=== PATIENT | female | born 1970 | race Native Hawaiian/Other Pacific Islander ===

== ENCOUNTER → 2021-09-05 | Outpatient (CLI) | payer OTHER ==
[2021-09-05 14:54] LABS: African American GFR (CKD) 122.1 (60.0-200.0); Albumin/Globulin Ratio 1.61 (1.60-3.17); Anion Gap 18.3 mmol/L (10.00-18.00); BUN/Creat Ratio 10.76 Ratio (12.00-20.00); Blood Urea Nitrogen 6.8 mg/dL (9.0-27.0); Calcium 9.5 mg/dL (8.7-10.3); Carbon Dioxide 26.7 mmol/L (20.0-27.5); Globulin 3.1 g/dL (1.6-3.3); Non-African American GFR(CKD) 105.3 (60.0-200.0); Potassium 3.1 mmol/L (3.5-5.5); Total Bilirubin 1.9 mg/dL (0.30-1.20); Total Protein 8.1 g/dL (6.2-8.2)
[2021-09-05 15:40] LABS: Basophils # (A) 0.05 X 10*3/uL (0.00-0.10); Basophils % (A) 1.5 %; Eosinophils # (A) 0.06 X 10*3/uL (0.04-0.35); Eosinophils % (A) 1.8 %; HGB 14.3 g/dL (12.0-15.0); Immature Grans, Automated 0 %; Lymphocytes # (A) 0.85 X 10*3/uL (0.90-5.00); Lymphocytes % (A) 25.7 %; MCH 33.1 pg (27.0-32.0); MCV 97.2 fL (80.0-97.0); Mean Platelet Volume 10.6 fL (9.5-12.2); Monocytes # (A) 0.36 X 10*3/uL (0.20-1.00); Monocytes % (A) 10.9 %; NRBC Per 100 WBC 0 /100 WBCS (0.0-0.0); Neutrophils # (A) 1.99 X 10*3/uL (1.80-7.70); Neutrophils % (A) 60.1 %; Platelet Count 82 X 10*3/uL (140-440); RBC 4.32 X 10*6/uL (4.10-5.20); RDW 11.8 % (11.5-14.5); WBC 3.31 X 10*3/uL (4.50-10.00)
[2021-09-05 15:41] LABS: RBC Morphology NORMAL
== END | disposition home or self-care (01) ==
LOC: LABWHC1 08:59
PROVIDERS: ATTEND Internal Medicine Gastroenterology
DX: K70.30 Alcoholic cirrhosis of liver without ascites (principal); K21.9 Gastro-esophageal reflux disease without esophagitis
CPT/HCPCS: 36415; 80053; 82105; 85025

== ENCOUNTER → 2021-09-29 | Outpatient (CLI) | payer OTHER ==
[2021-09-29 18:43] LABS: African American GFR (CKD) 131.7 (60.0-200.0); Albumin 4.2 g/dL (3.8-4.9); Albumin/Globulin Ratio 1.35 (1.60-3.17); Anion Gap 10.8 mmol/L (10.00-18.00); BUN/Creat Ratio 21.8 Ratio (12.00-20.00); Blood Urea Nitrogen 10.9 mg/dL (9.0-27.0); Calcium 9.6 mg/dL (8.7-10.3); Carbon Dioxide 22.2 mmol/L (20.0-27.5); Globulin 3.1 g/dL (1.6-3.3); Non-African American GFR(CKD) 113.6 (60.0-200.0); Potassium 4.3 mmol/L (3.5-5.5); Total Protein 7.3 g/dL (6.2-8.2)
== END | disposition home or self-care (01) ==
LOC: LABWHC1 10:49
PROVIDERS: ATTEND Internal Medicine Gastroenterology
DX: K70.30 Alcoholic cirrhosis of liver without ascites (principal); K21.9 Gastro-esophageal reflux disease without esophagitis
CPT/HCPCS: 36415; 80053

== ENCOUNTER 2022-01-12 12:37 | Inpatient (IN) | payer OTHER ==
[2022-01-12] MEDS ORDERED: SODIUM CHLORIDE 0.9% 1,000 ML IV ONE (12:57)
--- NOTE | 2022-01-12 13:04 | ED ---
Altered Mental Status HPI - General Chief Complaint: Altered Mental Status Stated Complaint: Fever,Vomiting Time Seen by Provider: 01/12/22 12:45 Source: patient Mode of arrival: ambulatory Limitations: altered mental status - History of Present Illness Initial Comments: 51-year-old female with past medical history of alcohol abuse, alcoholic cirrhosis who presents to the emergency department with altered mental status. History is provided by her coworkers. They state that the patient was found in the basement wandering. She is in a regular tire and not scheduled to work today. They found her confused with slurred speech. She is having delusions. States that she called a code walker on a patient however I'm told that this person does not exist. She is convinced that she saw a man and a jumpsuit. Patient reports to me that she is an alcoholic. Last drink was 5 days ago. States that she had a period of sobriety for a long time before this. She follows with a GI doctor out of [facility]. She has had 3 paracenteses, last of which was one year ago. She admits to nausea with vomiting over the past 3 days. No chest pain or shortness of breath. No fevers. Denies any abdominal pain. No peripheral swelling. No head trauma. Does admit to recent forgetfulness. No history of stroke. No history of cancer. No sick contacts. HPI is limited due to patient's altered mental status - Related Data Home Medications Medication Instructions Recorded Confirmed Acamprosate Calcium [Campral] 666 mg PO TID 01/12/22 01/12/22 Albuterol Inhaler [Ventolin Hfa 2 puff INHALATION RT-Q4H PRN 01/12/22 01/12/22 Inhaler] Ascorbic Acid [Vitamin C] 500 mg PO DAILY 01/12/22 01/12/22 Budesonide/Formoterol Fumarate 2 puff INHALATION RT-BID PRN 01/12/22 01/12/22 [Symbicort 160-4.5 Mcg Inhaler] Cyanocobalamin [Vitamin B-12] 500 mcg PO DAILY 01/12/22 01/12/22 Dicyclomine HCl 10 mg PO BID 01/12/22 01/12/22 FLUoxetine HCL [PROzac] 20 mg PO DAILY 01/12/22 01/12/22 Furosemide [Lasix] 20 mg PO DAILY 01/12/22 01/12/22 Lansoprazole [Prevacid 24Hr] 30 mg PO BID 01/12/22 01/12/22 Multivitamins, Thera [Multivitamin 1 tab PO DAILY 01/12/22 01/12/22 (formulary)] Ondansetron Odt [Zofran ODT] 4 mg PO Q8H PRN 01/12/22 01/12/22 Rifaximin [Xifaxan] 550 mg PO BID 01/12/22 01/12/22 Spironolactone [Aldactone] 25 mg PO DAILY 01/12/22 01/12/22 Previous Rx's Medication Instructions Recorded Lactulose [Cephulac] 10 gm PO BID #500 ml 01/14/22 traZODone HCL [Desyrel] 50 mg PO HS PRN #7 tab 01/14/22 Allergies Allergy/AdvReac Type Severity Reaction Status Date / Time carisoprodol [From Soma] Allergy Rash/Hives Verified 01/12/22 16:22 Review of Systems ROS Statement: Those systems with pertinent positive or pertinent negative responses have been documented in the HPI. ROS Other: All systems not noted in ROS Statement are negative. Past Medical History Past Medical History: Asthma, Liver Disease History of Any Multi-Drug Resistant Organisms: Unobtainable Additional Past Surgical History / Comment(s): Multiple paracentesis procedures Past Psychological History: Unable to Obtain Smoking Status: Unknown if ever smoked Past Alcohol Use History: Unable to Obtain Past Drug Use History: Unable to Obtain General Exam Limitations: altered mental status General appearance: alert, in no apparent distress, other (Confused) Head exam: Present: atraumatic, normocephalic, normal inspection Eye exam: Present: scleral icterus ENT exam: Present: normal exam, mucous membranes dry Neck exam: Present: normal inspection Respiratory exam: Present: normal lung sounds bilaterally Cardiovascular Exam: Present: regular rate, normal rhythm, normal heart sounds. Absent: systolic murmur, diastolic murmur, rubs, gallop, clicks GI/Abdominal exam: Present: soft, normal bowel sounds. Absent: distended, tenderness, guarding, rebound, rigid Neurological exam: Present: alert, other (Face is symmetric. Tongue is midline. Speech is slurred) Skin exam: Present: warm, dry, intact, normal color. Absent: rash Course Vital Signs 01/12/22 01/12/22 01/12/22 12:42 15:50 18:05 Temperature 98.3 F Pulse Rate 94 81 85 Respiratory 15 16 16 Rate Blood Pressure 133/83 103/71 104/72 O2 Sat by Pulse 100 99 99 Oximetry - Reevaluation(s) Reevaluation #1: 01/12/22 16:[address] Castro - agreeable to consult on the patient Medical Decision Making - Medical Decision Making Upon arrival patient was placed into room 23. Thorough history and physical exam was performed. IV access is established and laboratory studies are conducted and reviewed. Platelets are 53. INR 1.5. AST and ALTs are markedly elevated. Alcohol is negative. CT of the brain is performed which demonstrates no acute process. Chest x-ray demonstrates no acute cardio primary process. Gallbladder ultrasound demonstrated gallbladder sludge, heterogeneous liver. No gallstones. No pericholecystic fluid. No biliary dilation. Spoke with Dr. Garcia in regards to the patient's symptoms. She is agreeable to consult on the patient. Spoke with Dr. Can who will admit the patient. - Lab Data Result diagrams: 01/13/22 06:48 01/13/22 06:48 Lab Results 01/12/22 01/12/22 01/12/22 Range/Units 12:59 12:59 12:59 WBC 4.9 (3.8-10.6) k/uL RBC 4.04 (3.80-5.40) m/uL Hgb 13.7 (11.4-16.0) gm/dL Hct 39.3 (34.0-46.0) % MCV 97.1 (80.0-100.0) fL MCH 33.8 (25.0-35.0) pg MCHC 34.8 (31.0-37.0) g/dL RDW 12.8 (11.5-15.5) % Plt Count 53 L (150-450) k/uL MPV 11.8 Neutrophils % 62 % Lymphocytes % 21 % Monocytes % 10 % Eosinophils % 3 % Basophils % 0 % Neutrophils # 3.0 (1.3-7.7) k/uL Lymphocytes # 1.0 (1.0-4.8) k/uL Monocytes # 0.5 (0-1.0) k/uL Eosinophils # 0.2 (0-0.7) k/uL Basophils # 0.0 (0-0.2) k/uL Manual Slide Review Performed RBC Morphology Normal PT 15.7 H (9.0-12.0) sec INR 1.5 H (<1.2) APTT 25.8 (22.0-30.0) sec Sodium (137-145) mmol/L Potassium (3.5-5.1) mmol/L Chloride (98-107) mmol/L Carbon Dioxide (22-30) mmol/L Anion Gap mmol/L BUN (7-17) mg/dL Creatinine (0.52-1.04) mg/dL Est GFR (CKD-EPI)AfAm (>60 ml/min/1.73 sqM) Est GFR (CKD-EPI)NonAf (>60 ml/min/1.73 sqM) Glucose (74-99) mg/dL POC Glucose (mg/dL) (70-110) mg/dL POC Glu District Leader ID Calcium (8.4-10.2) mg/dL Total Bilirubin (0.2-1.3) mg/dL Conjugated Bilirubin (0.0-0.3) mg/dL Unconjugated Bilirubin (0.0-1.1) mg/dL Delta Bilirubin (0.0-0.2) mg/dL AST (14-36) U/L ALT (4-34) U/L Alkaline Phosphatase (38-126) U/L Ammonia (<30) umol/L Troponin I (0.000-0.034) ng/mL Total Protein (6.3-8.2) g/dL Albumin (3.5-5.0) g/dL TSH (0.465-4.680) mIU/L Urine Color Yellow Urine Appearance Clear (Clear) Urine pH 6.5 (5.0-8.0) Ur Specific [place] 1.007 (1.001-1.035) Urine Protein Negative (Negative) Urine Glucose (UA) Negative (Negative) Urine Ketones Negative (Negative) Urine Blood Negative (Negative) Urine Nitrite Negative (Negative) Urine Bilirubin Negative (Negative) Urine Urobilinogen <2.0 (<2.0) mg/dL Ur Leukocyte Esterase Negative (Negative) Salicylates mg/dL Urine Opiates Screen Not Detected (NotDetected) Ur Oxycodone Screen Not Detected (NotDetected) Urine Methadone Screen Not Detected (NotDetected) Ur Propoxyphene Screen Not Detected (NotDetected) Acetaminophen ug/mL Ur Barbiturates Screen Not Detected (NotDetected) U Tricyclic Antidepress Not Detected (NotDetected) Ur Phencyclidine Scrn Not Detected (NotDetected) Ur Amphetamines Screen Not Detected (NotDetected) U Methamphetamines Scrn Not Detected (NotDetected) U Benzodiazepines Scrn Not Detected (NotDetected) Urine Cocaine Screen Not Detected (NotDetected) U Marijuana (THC) Screen Detected H (NotDetected) Serum Alcohol mg/dL 01/12/22 01/12/22 01/12/22 Range/Units 12:59 12:59 12:59 WBC (3.8-10.6) k/uL RBC (3.80-5.40) m/uL Hgb (11.4-16.0) gm/dL Hct (34.0-46.0) % MCV (80.0-100.0) fL MCH (25.0-35.0) pg MCHC (31.0-37.0) g/dL RDW (11.5-15.5) % Plt Count (150-450) k/uL MPV Neutrophils % % Lymphocytes % % Monocytes % % Eosinophils % % Basophils % % Neutrophils # (1.3-7.7) k/uL Lymphocytes # (1.0-4.8) k/uL Monocytes # (0-1.0) k/uL Eosinophils # (0-0.7) k/uL Basophils # (0-0.2) k/uL Manual Slide Review RBC Morphology PT (9.0-12.0) sec INR (<1.2) APTT (22.0-30.0) sec Sodium 132 L (137-145) mmol/L Potassium 3.9 (3.5-5.1) mmol/L Chloride 90 L (98-107) mmol/L Carbon Dioxide 28 (22-30) mmol/L Anion Gap 14 mmol/L BUN 27 H (7-17) mg/dL Creatinine 0.63 (0.52-1.04) mg/dL Est GFR (CKD-EPI)AfAm >90 (>60 ml/min/1.73 sqM) Est GFR (CKD-EPI)NonAf >90 (>60 ml/min/1.73 sqM) Glucose 104 H (74-99) mg/dL POC Glucose (mg/dL) (70-110) mg/dL POC Glu District Leader ID Calcium 9.7 (8.4-10.2) mg/dL Total Bilirubin 8.2 H (0.2-1.3) mg/dL Conjugated Bilirubin 3.0 H (0.0-0.3) mg/dL Unconjugated Bilirubin 3.2 H (0.0-1.1) mg/dL Delta Bilirubin 2.0 H (0.0-0.2) mg/dL AST 1240 H (14-36) U/L ALT 446 H (4-34) U/L Alkaline Phosphatase 231 H (38-126) U/L Ammonia 12 (<30) umol/L Troponin I 0.014 (0.000-0.034) ng/mL Total Protein 9.1 H (6.3-8.2) g/dL Albumin 5.3 H (3.5-5.0) g/dL TSH 0.925 (0.465-4.680) mIU/L Urine Color Urine Appearance (Clear) Urine pH (5.0-8.0) Ur Specific [place] (1.001-1.035) Urine Protein (Negative) Urine Glucose (UA) (Negative) Urine Ketones (Negative) Urine Blood (Negative) Urine Nitrite (Negative) Urine Bilirubin (Negative) Urine Urobilinogen (<2.0) mg/dL Ur Leukocyte Esterase (Negative) Salicylates <1.0 mg/dL Urine Opiates Screen (NotDetected) Ur Oxycodone Screen (NotDetected) Urine Methadone Screen (NotDetected) Ur Propoxyphene Screen (NotDetected) Acetaminophen <10.0 ug/mL Ur Barbiturates Screen (NotDetected) U Tricyclic Antidepress (NotDetected) Ur Phencyclidine Scrn (NotDetected) Ur Amphetamines Screen (NotDetected) U Methamphetamines Scrn (NotDetected) U Benzodiazepines Scrn (NotDetected) Urine Cocaine Screen (NotDetected) U Marijuana (THC) Screen (NotDetected) Serum Alcohol <10 mg/dL 01/12/22 Range/Units 15:48 WBC (3.8-10.6) k/uL RBC (3.80-5.40) m/uL Hgb (11.4-16.0) gm/dL Hct (34.0-46.0) % MCV (80.0-100.0) fL MCH (25.0-35.0) pg MCHC (31.0-37.0) g/dL RDW (11.5-15.5) % Plt Count (150-450) k/uL MPV Neutrophils % % Lymphocytes % % Monocytes % % Eosinophils % % Basophils % % Neutrophils # (1.3-7.7) k/uL Lymphocytes # (1.0-4.8) k/uL Monocytes # (0-1.0) k/uL Eosinophils # (0-0.7) k/uL Basophils # (0-0.2) k/uL Manual Slide Review RBC Morphology PT (9.0-12.0) sec INR (<1.2) APTT (22.0-30.0) sec Sodium (137-145) mmol/L Potassium (3.5-5.1) mmol/L Chloride (98-107) mmol/L Carbon Dioxide (22-30) mmol/L Anion Gap mmol/L BUN (7-17) mg/dL Creatinine (0.52-1.04) mg/dL Est GFR (CKD-EPI)AfAm (>60 ml/min/1.73 sqM) Est GFR (CKD-EPI)NonAf (>60 ml/min/1.73 sqM) Glucose (74-99) mg/dL POC Glucose (mg/dL) 90 (70-110) mg/dL POC Glu District Leader ID Primo, Asmara Calcium (8.4-10.2) mg/dL Total Bilirubin (0.2-1.3) mg/dL Conjugated Bilirubin (0.0-0.3) mg/dL Unconjugated Bilirubin (0.0-1.1) mg/dL Delta Bilirubin (0.0-0.2) mg/dL AST (14-36) U/L ALT (4-34) U/L Alkaline Phosphatase (38-126) U/L Ammonia (<30) umol/L Troponin I (0.000-0.034) ng/mL Total Protein (6.3-8.2) g/dL Albumin (3.5-5.0) g/dL TSH (0.465-4.680) mIU/L Urine Color Urine Appearance (Clear) Urine pH (5.0-8.0) Ur Specific [place] (1.001-1.035) Urine Protein (Negative) Urine Glucose (UA) (Negative) Urine Ketones (Negative) Urine Blood (Negative) Urine Nitrite (Negative) Urine Bilirubin (Negative) Urine Urobilinogen (<2.0) mg/dL Ur Leukocyte Esterase (Negative) Salicylates mg/dL Urine Opiates Screen (NotDetected) Ur Oxycodone Screen (NotDetected) Urine Methadone Screen (NotDetected) Ur Propoxyphene Screen (NotDetected) Acetaminophen ug/mL Ur Barbiturates Screen (NotDetected) U Tricyclic Antidepress (NotDetected) Ur Phencyclidine Scrn (NotDetected) Ur Amphetamines Screen (NotDetected) U Methamphetamines Scrn (NotDetected) U Benzodiazepines Scrn (NotDetected) Urine Cocaine Screen (NotDetected) U Marijuana (THC) Screen (NotDetected) Serum Alcohol mg/dL - EKG Data EKG Comments: EKG demonstrates sinus rhythm with a rate of 78. CA interval 159. QRS 95. QTC 447. No acute ST segment elevations or depressions Disposition Clinical Impression: Hepatic encephalopathy, Alcohol abuse, Hepatic cirrhosis Disposition: ADMITTED IP TO THIS [facility] Condition: Poor Is patient prescribed a controlled substance at d/c from ED?: No Time of Disposition: 16:23 Decision to Admit Reason: Admit from EC Decision Date: 01/12/22 Decision Time: 16:23
[2022-01-12 13:15] LABS: Basophils % (A) 0 %; Eosinophils # (A) 0.2 k/uL (0-0.7); Eosinophils % (A) 3 %; HCT 39.3 % (34.0-46.0); HGB 13.7 gm/dL (11.4-16.0); Lymphocytes % (A) 21 %; MCH 33.8 pg (25.0-35.0); MCHC 34.8 g/dL (31.0-37.0); MCV 97.1 fL (80.0-100.0); Mean Platelet Volume 11.8; Monocytes # (A) 0.5 k/uL (0-1.0); Monocytes % (A) 10 %; Neutrophils % (A) 62 %; RBC 4.04 m/uL (3.80-5.40); RDW 12.8 % (11.5-15.5); WBC 4.9 k/uL (3.8-10.6)
[2022-01-12 13:26] LABS: ALT 446 U/L (4-34); Acetaminophen <10.0 ug/mL; African American GFR (CKD) >90 (>60 ml/min/1.73 sqM); Alcohol <10 mg/dL; Anion Gap 14 mmol/L; Bilirubin,Unconjugated 3.2 mg/dL (0.0-1.1); Blood Urea Nitrogen 27 mg/dL (7-17); Calcium 9.7 mg/dL (8.4-10.2); Carbon Dioxide 28 mmol/L (22-30); Chloride 90 mmol/L (98-107); Glucose 104 mg/dL (74-99); Non-African American GFR(CKD) >90 (>60 ml/min/1.73 sqM); Salicylate <1.0 mg/dL; Sodium 132 mmol/L (137-145); Total Bilirubin 8.2 mg/dL (0.2-1.3)
--- NOTE | 2022-01-12 13:38 | CT ---
EXAMINATION TYPE: CT brain wo con CT DLP: 1076.4 mGycm, Automated exposure control for dose reduction was used. DATE OF EXAM: 01/12/2022 1:25 PM COMPARISON: None. CLINICAL INDICATION:Female, 51 years old with history of Altered mental status. TECHNIQUE: Brain: Multiple axial CT images of the brain were obtained without IV contrast. Coronal and sagittal reformats reviewed. FINDINGS: Brain: Extra-axial spaces: No abnormal extra-axial fluid collections. Ventricular system: Within normal limits Cerebral parenchyma: No acute intraparenchymal hemorrhage or mass effect. The benavidez-white junction is well differentiated. Cerebellum: Unremarkable. Mass effect: No evidence of midline shift. Intracranial vasculature: Atherosclerotic calcifications of the intracranial vessels. Soft tissues: Normal. Calvarium/osseous structures: No depressed skull fracture. Paranasal sinuses and mastoid air cells: Clear Visualized orbits: Orbital contents are intact. IMPRESSION: No acute intracranial process.
[2022-01-12 13:42] LABS: Potassium 3.9 mmol/L (3.5-5.1)
[2022-01-12 13:43] LABS: Albumin 5.3 g/dL (3.5-5.0); Total Protein 9.1 g/dL (6.3-8.2)
[2022-01-12 13:44] LABS: AST 1240 U/L (14-36); Alkaline Phosphatase 231 U/L (38-126)
--- NOTE | 2022-01-12 13:45 | XR ---
EXAMINATION TYPE: XR chest 2V DATE OF EXAM: 01/12/2022 1:28 PM COMPARISON: None TECHNIQUE: XR chest 2V Frontal and lateral views of the chest. CLINICAL INDICATION:Female, 51 years old with history of altered mental status; FINDINGS: Lungs/Pleura: There is no evidence of pleural effusion, focal consolidation, or pneumothorax. Pulmonary vascularity: Unremarkable. Heart/mediastinum: Cardiomediastinal silhouette is unremarkable. Musculoskeletal: No acute osseous pathology. IMPRESSION: No acute cardiopulmonary disease/process.
[2022-01-12 13:58] LABS: INR 1.5 (<1.2); Partial Thromboplastin Time 25.8 sec (22.0-30.0); Prothrombin Time 15.7 sec (9.0-12.0)
[2022-01-12 14:16] LABS: Platelet Count 53 k/uL (150-450); RBC Morphology Normal
[2022-01-12 15:03] LABS: Appearance,Urine Clear (Clear); Bilirubin,Urine Negative (Negative); Blood,Urine Negative (Negative); Color,Urine Yellow; Glucose,Urine (UA) Negative (Negative); Ketones,Urine Negative (Negative); Leukocyte Esterase,Urine Negative (Negative); Nitrite,Urine Negative (Negative); PH, Urine 6.5 (5.0-8.0); Protein,Urine Negative (Negative); Specific Gravity,Urine 1.007 (1.001-1.035); Urobilinogen,Urine <2.0 mg/dL (<2.0)
[2022-01-12 15:13] LABS: Amphetamine Screen,Urine Not Detected (NotDetected); Barbiturate Screen,Urine Not Detected (NotDetected); Benzodiazepines Screen,Urine Not Detected (NotDetected); Cocaine Screen,Urine Not Detected (NotDetected); Methadone Screen, Urine Not Detected (NotDetected); Opiate Screen,Urine Not Detected (NotDetected); Oxycodone Screen, Urine Not Detected (NotDetected); Phencyclidine Screen,Urine Not Detected (NotDetected); Tricyclic Antidepressant,Urine Not Detected (NotDetected); Urn Cannabinoid Scrn Detected (NotDetected)
--- NOTE | 2022-01-12 15:26 | US ---
EXAMINATION TYPE: US gallbladder DATE OF EXAM: 01/12/2022 COMPARISON: NONE CLINICAL HISTORY: elevated liver enzymes. Hx cirrhosis. Elevated liver enzymes. TECHNIQUE: Multiple sonographic images of the right upper quadrant are obtained. FINDINGS: EXAM MEASUREMENTS: Liver Length: 17.1 cm Gallbladder Wall: 0.23 cm CBD: 0.57 cm Right Kidney: 12.5 x 5.2 x 4.9 cm NURSE UNIT MANAGER NOTES: Limited due to overlying bowel gas Pancreas: Limited. Liver: Appears very heterogeneous with increased echogenicity and attenuation. Measures upper limits . Gallbladder: Internal echoes/debris seen within the gallbladder: 6.9 x 3.3 x 1.3. Measures upper rizzo its at 9.4 cm in length. Evidence for sonographic Hussein's sign: Patient feels tenderness while scanning over the gallbladd er. CBD: Portions seen appear wnl. Right Kidney: Appears minimally enlarged. No hydronephrosis or masses seen. Limited visibility of low er pole. Visualized portion of pancreas within normal limits. Portions obscured by overlying bowel gas. Visual ized liver heterogeneously hyperechoic. Evaluation for focal masses suboptimal due to the heterogenei ty. No adjacent ascites. Gallbladder shows dependent density could reflect sludge versus artifact. No shadowing mobile gallstones. No pericholecystic fluid or abnormal gallbladder wall thickening. No bi liary dilatation. No right-sided hydronephrosis. IMPRESSION: Heterogeneous hyperechoic appearance of liver consistent with diffuse fatty infiltration and/or underlying hepatocellular disease.
[2022-01-12 15:51] LABS: Glucose,Whole Blood 90 mg/dL (70-110)
[2022-01-12] MEDS ORDERED: NALOXONE 0.4 MG/ML 1 ML VIAL IV PRN (16:20)
[2022-01-12] MEDS ORDERED: ACETAMINOPHEN TAB 325 MG TAB PO PRN (16:20)
[2022-01-12] MEDS: SODIUM CHLORIDE 0.9% 1,000 ML IV SCH (17:07)
[2022-01-12] MEDS ORDERED: ONDANSETRON ODT 4 MG TAB PO PRN (17:19)
[2022-01-12] MEDS ORDERED: SYMBICORT 160-4.5 MCG INHALER INHALATION PRN (17:19)
--- NOTE | 2022-01-12 17:21 | P.HPIM ---
History of Present Illness H&P Date: 01/12/22 Chief Complaint: Episodes of confusion, altered mental status 51-year-old woman with medical history of alcohol use disorder, alcoholic cirrhosis, depression, asthma presented for evaluation of altered mental status. According to the patient, she has been having issues with confusion over the last several days to the point where family has started to notice that she's bee n having delusions and hallucinations. Yesterday for example she was having hallucinations that someone broke into her house and was planning to robber, and felt terrified from this. This morning, she presented to work but was not scheduled, and was found by her colleagues who noted that she was quite confused. 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 As a consequence, patient was brought to the emergency room for further evaluation. She denies fevers, but reports chills. She reports nausea without vomiting. She denies chest pain, palpitations, syncope, presyncope, cough, dyspnea. She reports abdominal pain, intermittent constipation, denies diarrhea. She denies dysuria, dyschezia, hematochezia, melena. She denies numbness/weakness of extremities. In the emergency room, patient was afebrile, 133/83, heart rate 94, 100% on room air. CBC shows low platelets of 53, otherwise unremarkable. Chemistry show low sodium at 132, low chloride at 90, BUN of 27, otherwise unremarkable. LFTs show total bilirubin of 8.2, conjugate bilirubin of 3.0, unconjugated bilirubin of 3.2, delta bilirubin of 2.0, AST of 1240, ALT of 446, alkaline phosphatase of 231, total protein of 9.1, albumin 5.3. TSH was 0.925. Ammonia was 12. Initial troponins 0.014. Coags show an elevated PT of 15.7, elevated INR 1.5. UA is unremarkable. Urine tox screen is only positive for marijuana. Alcohol level was less than 10, Tylenol level was less than 10, salicylate level was less than 1. Brain CT was negative for acute intracranial process. Chest x-ray was negative for acute cardiopulmonary disease or process. Gallbladder ultrasound demonstrated heterogenous hyperechoic appearance of the liver consistent with hepatocellular disease, no evidence of cholecystitis. All Systems reviewed and pertinent positives and negatives noted in HPI, all other symptoms are negative Gen: in no apparent distress, resting comfortably in bed Eyes: PERRL, no scleral injection or icterus HENT: normocephalic, atraumatic, good hearing acuity, moist mucous membranes Neck: no tracheal deviation, full range of motion Resp: good air exchange, breathing comfortably with no accessory muscle use, no tactile fremitus CVS: good distal perfusion x 4, no pitting edema GI: soft, ND, no hepatosplenomegaly, tenderness to palpation diffusely, but worse in the right upper quadrant, spider angiomata present : no suprapubic tenderness, no CVAT, fenton catheter not present MSK: no clubbing, no cyanosis, no noted contractures of extremities Skin: no noted rashes, petechiae; temperature of skin is appropriate Neuro: moving all extremities without signs of weakness, CN II-XII intact Psych: cooperative, euthymic mood, insight and judgment intact Labs and imaging reviewed as above Assessment/plan: Altered mental status Hepatocellular liver failure -Admit to inpatient, telemetry -GI consult -IV fluids -Hold off on antibiotics for now -Lactulose -Resume patient's rifaximin Alcohol use disorder Asthma Depression -Home medications reviewed and reconciled Patient is full code DVT prophylaxis with heparin 3 times a day Past Medical History Past Medical History: Asthma, Liver Disease History of Any Multi-Drug Resistant Organisms: Unobtainable Additional Past Surgical History / Comment(s): Multiple paracentesis procedures Past Psychological History: Unable to Obtain Smoking Status: Unknown if ever smoked Past Alcohol Use History: Unable to Obtain Past Drug Use History: Unable to Obtain Medications and Allergies Home Medications Medication Instructions Recorded Confirmed Type Acamprosate Calcium [Campral] 666 mg PO TID 01/12/22 01/12/22 History Albuterol Inhaler [Ventolin Hfa 2 puff INHALATION RT-Q4H PRN 01/12/22 01/12/22 History Inhaler] Ascorbic Acid [Vitamin C] 500 mg PO DAILY 01/12/22 01/12/22 History Budesonide/Formoterol Fumarate 2 puff INHALATION RT-BID PRN 01/12/22 01/12/22 History [Symbicort 160-4.5 Mcg Inhaler] Cyanocobalamin [Vitamin B-12] 500 mcg PO DAILY 01/12/22 01/12/22 History Dicyclomine HCl 10 mg PO BID 01/12/22 01/12/22 History FLUoxetine HCL [PROzac] 20 mg PO DAILY 01/12/22 01/12/22 History Furosemide [Lasix] 20 mg PO DAILY 01/12/22 01/12/22 History Lansoprazole [Prevacid 24Hr] 30 mg PO BID 01/12/22 01/12/22 History Multivitamins, Thera [Multivitamin 1 tab PO DAILY 01/12/22 01/12/22 History (formulary)] Ondansetron Odt [Zofran Odt] 4 mg PO Q8H PRN 01/12/22 01/12/22 History Rifaximin [Xifaxan] 550 mg PO BID 01/12/22 01/12/22 History Spironolactone [Aldactone] 25 mg PO DAILY 01/12/22 01/12/22 History Allergies Allergy/AdvReac Type Severity Reaction Status Date / Time carisoprodol [From Soma] Allergy Rash/Hives Verified 01/12/22 16:22 Physical Exam Osteopathic Statement: *. No significant issues noted on an osteopathic structural exam other than those noted in the History and Physical/Consult. Vitals: Vital Signs Temp Pulse Resp BP Pulse Ox 01/12/22 15:50 81 16 103/71 99 01/12/22 12:42 98.3 F 94 15 133/83 100 Intake and Output 01/12/22 01/12/22 01/12/22 06:59 14:59 22:59 Other: Weight 57.153 kg Results CBC & Chem 7: 01/12/22 12:59 01/12/22 12:59 Labs: Abnormal Lab Results - Last 24 Hours (Table) 01/12/22 01/12/22 01/12/22 Range/Units 12:59 12:59 12:59 Plt Count 53 L (150-450) k/uL PT 15.7 H (9.0-12.0) sec INR 1.5 H (<1.2) Sodium (137-145) mmol/L Chloride (98-107) mmol/L BUN (7-17) mg/dL Glucose (74-99) mg/dL Total Bilirubin (0.2-1.3) mg/dL Conjugated Bilirubin (0.0-0.3) mg/dL Unconjugated Bilirubin (0.0-1.1) mg/dL Delta Bilirubin (0.0-0.2) mg/dL AST (14-36) U/L ALT (4-34) U/L Alkaline Phosphatase (38-126) U/L Total Protein (6.3-8.2) g/dL Albumin (3.5-5.0) g/dL U Marijuana (THC) Screen Detected H (NotDetected) 01/12/22 Range/Units 12:59 Plt Count (150-450) k/uL PT (9.0-12.0) sec INR (<1.2) Sodium 132 L (137-145) mmol/L Chloride 90 L (98-107) mmol/L BUN 27 H (7-17) mg/dL Glucose 104 H (74-99) mg/dL Total Bilirubin 8.2 H (0.2-1.3) mg/dL Conjugated Bilirubin 3.0 H (0.0-0.3) mg/dL Unconjugated Bilirubin 3.2 H (0.0-1.1) mg/dL Delta Bilirubin 2.0 H (0.0-0.2) mg/dL AST 1240 H (14-36) U/L ALT 446 H (4-34) U/L Alkaline Phosphatase 231 H (38-126) U/L Total Protein 9.1 H (6.3-8.2) g/dL Albumin 5.3 H (3.5-5.0) g/dL U Marijuana (THC) Screen (NotDetected)
[2022-01-12] MEDS: PANTOPRAZOLE 40 MG TABLET PO SCH (18:04)
[2022-01-12] MEDS: DICYCLOMINE 10 MG CAP PO SCH (21:40)
[2022-01-12] MEDS: LACTULOSE 20 GM/30 ML CUP PO SCH (21:40)
[2022-01-12] MEDS: RIFAXIMIN 550 MG TABLET PO SCH (21:41)
[2022-01-12] MEDS: ACAMPROSATE CALCIUM 333 MG TABLET.DR PO SCH (21:41)
[2022-01-13] MEDS: HEPARIN SODIUM,PORCINE/PF 5,000 UNIT/0.5 ML SYRINGE SQ SCH ×3 (00:15→18:31)
[2022-01-13] MEDS: SODIUM CHLORIDE 0.9% 1,000 ML IV SCH ×2 (06:10→18:42)
[2022-01-13] MEDS: PANTOPRAZOLE 40 MG TABLET PO SCH ×2 (06:31→18:31)
[2022-01-13 07:57] LABS: Basophils % (A) 1 %; Eosinophils # (A) 0.2 k/uL (0-0.7); Eosinophils % (A) 5 %; HCT 41.7 % (34.0-46.0); HGB 13.9 gm/dL (11.4-16.0); Lymphocytes % (A) 29 %; MCHC 33.4 g/dL (31.0-37.0); MCV 101.7 fL (80.0-100.0); Macrocytosis Slight; Mean Platelet Volume 10.3; Monocytes # (A) 0.4 k/uL (0-1.0); Monocytes % (A) 11 %; Neutrophils # (A) 1.9 k/uL (1.3-7.7); Neutrophils % (A) 52 %; RDW 12.7 % (11.5-15.5); WBC 3.6 k/uL (3.8-10.6)
[2022-01-13 08:02] LABS: INR 1.4 (<1.2); Prothrombin Time 14.5 sec (9.0-12.0)
[2022-01-13 08:06] LABS: ALT 377 U/L (4-34); African American GFR (CKD) >90 (>60 ml/min/1.73 sqM); Albumin 4.9 g/dL (3.5-5.0); Alkaline Phosphatase 213 U/L (38-126); Anion Gap 15 mmol/L; Blood Urea Nitrogen 17 mg/dL (7-17); Calcium 9.4 mg/dL (8.4-10.2); Carbon Dioxide 27 mmol/L (22-30); Chloride 94 mmol/L (98-107); Glucose 84 mg/dL (74-99); Lipase 295 U/L (23-300); Magnesium 1.9 mg/dL (1.6-2.3); Non-African American GFR(CKD) >90 (>60 ml/min/1.73 sqM); Potassium 3.3 mmol/L (3.5-5.1); Sodium 136 mmol/L (137-145); Total Bilirubin 9.6 mg/dL (0.2-1.3); Total Protein 8.4 g/dL (6.3-8.2)
[2022-01-13 08:07] LABS: Platelet Count 42 k/uL (150-450)
[2022-01-13 08:34] LABS: AST 768 U/L (14-36)
[2022-01-13] MEDS ORDERED: Potassium Replacement Protocol 1 EACH MISC MISCELLANE PRN (09:03)
--- NOTE | 2022-01-13 09:13 | P.CONS ---
History of Present Illness - Reason for Consult Consult date: 01/13/22 Hepatic encephalopathy Requesting physician: Vivian Can - Chief Complaint Confusion - History of Present Illness This 51-year-old female with a past medical history including alcohol abuse, alcoholic cirrhosis, depression and asthma who was brought to the emergency department for evaluation for altered mental status changes. She states that she's been having some confusion over the last several days, associated nausea and vomiting. According to medical teams no patient's family also had stated that they have been noticing that she was having delusions and hallucinations. Will be walked into the patient's room today she does believe that she is seeing bugs on her bed, jumping around. She otherwise answers most of the questions appropriately. She states that she has been drinking for many years she drinks 5-6 cans of weight of 5-6 days a week. She follows with hvac technician out of [facility] and states that she has been referred down to [facility]. She has had for paracentesis in the past with the last paracentesis being last January. She is currently on Lasix 20 mg daily and Aldactone 25 mg daily. She is on Xifaxan 550 mg twice a day, does not take lactulose at home. She states she does have some abdominal discomfort, no further nausea or vomiting. Ammonia level was normal on admission at 12. LFTs are elevated con sistent with alcoholic cirrhosis of the liver. Gallbladder ultrasound reports heterogeneous hyperechoic appearance of liver consistent with diffuse fatty infiltration and/or underlying hepatocellular disease Labs WBC 3.6 hemoglobin 13.9 hematocrit 41 platelet count 42,000 INR 1.4 sodium 136 potassium 3.3 BUN 17 creatinine 0.64 glucose 84, total bilirubin 9.6 AST 768 ALT 377 alkaline phosphatase 213 lipase 295 Review of Systems REVIEW OF SYSTEMS: CARDIOPULMONARY: No chest pain or shortness of breath. Gastrointestinal: No abdominal pain. Nausea and vomiting for 2-3 days, now resolved. No hematemesis, coffee-ground emesis. No rectal bleeding, or melena. GENITOURINARY: No dysuria or hematuria. MUSCULOSKELETAL: Reports normal range of motion. SKIN: No rashes. Jaundice. ENDOCRINE: No chills, fevers. No excessive weight gain or loss. No polydipsia or polyuria. PSYCHIATRIC: Unremarkable. NEUROLOGY: Confused, hallucinating. ENT: Vision unremarkable. CONSTITUTIONAL: No recent weight loss. No fever, chills, night sweats. Past Medical History Past Medical History: Asthma, Liver Disease History of Any Multi-Drug Resistant Organisms: Unobtainable Additional Past Surgical History / Comment(s): Multiple paracentesis procedures Past Psychological History: Unable to Obtain Smoking Status: Unknown if ever smoked Past Alcohol Use History: Unable to Obtain Past Drug Use History: Unable to Obtain Medications and Allergies Home Medications Medication Instructions Recorded Confirmed Type Acamprosate Calcium [Campral] 666 mg PO TID 01/12/22 01/12/22 History Albuterol Inhaler [Ventolin Hfa 2 puff INHALATION RT-Q4H PRN 01/12/22 01/12/22 History Inhaler] Ascorbic Acid [Vitamin C] 500 mg PO DAILY 01/12/22 01/12/22 History Budesonide/Formoterol Fumarate 2 puff INHALATION RT-BID PRN 01/12/22 01/12/22 History [Symbicort 160-4.5 Mcg Inhaler] Cyanocobalamin [Vitamin B-12] 500 mcg PO DAILY 01/12/22 01/12/22 History Dicyclomine HCl 10 mg PO BID 01/12/22 01/12/22 History FLUoxetine HCL [PROzac] 20 mg PO DAILY 01/12/22 01/12/22 History Furosemide [Lasix] 20 mg PO DAILY 01/12/22 01/12/22 History Lansoprazole [Prevacid 24Hr] 30 mg PO BID 01/12/22 01/12/22 History Multivitamins, Thera [Multivitamin 1 tab PO DAILY 01/12/22 01/12/22 History (formulary)] Ondansetron Odt [Zofran Odt] 4 mg PO Q8H PRN 01/12/22 01/12/22 History Rifaximin [Xifaxan] 550 mg PO BID 01/12/22 01/12/22 History Spironolactone [Aldactone] 25 mg PO DAILY 01/12/22 01/12/22 History Allergies Allergy/AdvReac Type Severity Reaction Status Date / Time carisoprodol [From Soma] Allergy Rash/Hives Verified 01/12/22 16:22 Physical Exam Vitals: Vital Signs Temp Pulse Pulse Resp BP BP Pulse Ox 01/13/22 04:35 97.8 F 74 18 104/62 99 01/13/22 00:10 98.1 F 86 18 100/64 98 01/12/22 20:05 98.3 F 85 18 107/72 99 01/12/22 18:05 85 16 104/72 99 01/12/22 15:50 81 16 103/71 99 01/12/22 12:42 98.3 F 94 15 133/83 100 Intake and Output 01/12/22 01/13/22 01/13/22 22:59 06:59 14:59 Intake Total 10 10 Balance 10 10 Intake: IV 10 10 Invasive Line 1 10 10 Other: Voiding Method Toilet Toilet # Voids 1 1 Weight 57.153 kg General appearance: The patient is alert, oriented, appears in no acute distress . HET: Head is normocephalic and atraumatic. Conjunctiva pink. Sclera icteric. Neck: Supple without lymphadenopathy. Trachea midline. Heart: S1 S2. Regular rate and rhythm. Lungs: Clear to auscultation. Abdomen: Soft, nontender, nondistended with bowel sounds. No guarding or rigidity. Skin: No rashes. Jaundice. Extremities: Normal skin color and turgor. No pedal edema. Neurological: No focal deficits. Alert and oriented x3. Results CBC & Chem 7: 01/13/22 06:48 01/13/22 06:48 Labs: Abnormal Lab Results - Last 24 Hours (Table) 01/12/22 01/12/22 01/12/22 Range/Units 12:59 12:59 12:59 Plt Count 53 L (150-450) k/uL PT 15.7 H (9.0-12.0) sec INR 1.5 H (<1.2) Sodium (137-145) mmol/L Chloride (98-107) mmol/L BUN (7-17) mg/dL Glucose (74-99) mg/dL Total Bilirubin (0.2-1.3) mg/dL Conjugated Bilirubin (0.0-0.3) mg/dL Unconjugated Bilirubin (0.0-1.1) mg/dL Delta Bilirubin (0.0-0.2) mg/dL AST (14-36) U/L ALT (4-34) U/L Alkaline Phosphatase (38-126) U/L Total Protein (6.3-8.2) g/dL Albumin (3.5-5.0) g/dL U Marijuana (THC) Screen Detected H (NotDetected) 01/12/22 Range/Units 12:59 Plt Count (150-450) k/uL PT (9.0-12.0) sec INR (<1.2) Sodium 132 L (137-145) mmol/L Chloride 90 L (98-107) mmol/L BUN 27 H (7-17) mg/dL Glucose 104 H (74-99) mg/dL Total Bilirubin 8.2 H (0.2-1.3) mg/dL Conjugated Bilirubin 3.0 H (0.0-0.3) mg/dL Unconjugated Bilirubin 3.2 H (0.0-1.1) mg/dL Delta Bilirubin 2.0 H (0.0-0.2) mg/dL AST 1240 H (14-36) U/L ALT 446 H (4-34) U/L Alkaline Phosphatase 231 H (38-126) U/L Total Protein 9.1 H (6.3-8.2) g/dL Albumin 5.3 H (3.5-5.0) g/dL U Marijuana (THC) Screen (NotDetected) US - abdomen: report reviewed (Gallbladder ultrasound reports heterogeneous hyperechoic appearance of liver consistent with diffuse fatty infiltration and/or underlying hepatocellular disease) Assessment and Plan (1) Hepatic encephalopathy Narrative/Plan: 51-year-old female with a known history of alcoholic cirrhosis of liver who has been diagnosed at least greater than 1 year duration and following with the moni astroenterologist from [facility]. Patient was brought to the emergency department for increased confusion, hallucinations. She states that she has been becoming a little more confused over the last few days duration. She was also having significant cravings of ice cold water and drinking significant amounts been having abdominal pain and nausea and vomiting. She states that she has still been drinking, she drinks 4-5 cans of Plaquenil 5-6 days a week. Currently on Lasix and Aldactone as well as Xifaxan, however has not been on lactulose. She states that she had an appointment with [facility] will need further follow-up. She had significant elevation in her LFTs, however her ammonia level was normal on admission. We'll continue to trend. Lactulose 10 mg started twice a day. Patient to follow-up with her hvac technician and [facility] upon discharge. Current Visit: Yes Status: Acute Code(s): K76.82 - HEPATIC ENCEPHALOPATHY SNOMED Code(s): 69881511 (2) Alcoholic cirrhosis of liver Current Visit: Yes Status: Acute Code(s): K70.30 - ALCOHOLIC CIRRHOSIS OF LIVER WITHOUT ASCITES SNOMED Code(s): 391179333 (3) Alcohol abuse Current Visit: Yes Status: Acute Code(s): F10.10 - ALCOHOL ABUSE, UNCOMPLICATED SNOMED Code(s): 54051502 Plan: 1. Continue symptomatic and supportive care 2. Daily CMP 3. Repeat ammonia level tomorrow 4. Continue Xifaxan 5. Continue Lasix and Aldactone as ordered 6. Continue lactulose 10 mg twice a day, patient is to have 3-4 bowel movements daily. Give at least 1 dose of lactulose daily 7. Recommend outpatient follow-up with the patient's hvac technician at [facility] 8. Low sodium diet 9. Alcohol abstinence Thank you for allowing us to participate in the care of the patient, the GI service will sign off, gastroenterology will not be available at the hospital this weekend and through next week. If further evaluation by gastroenterology is required the patient will need transfer as per the primary team's discretion. Dr. Dayron Castro I agree with the dictator's note, documented as a scribe by Nicol Oliveira.
[2022-01-13] MEDS: LACTULOSE 20 GM/30 ML CUP PO SCH ×2 (10:32→18:32)
[2022-01-13] MEDS ORDERED: traZODone HCL 50 MG TAB PO PRN (10:37)
[2022-01-13] MEDS: RIFAXIMIN 550 MG TABLET PO SCH ×2 (11:03→19:53)
[2022-01-13] MEDS: MULTIVITAMINS, THERA 1 EACH TAB PO SCH (11:03)
[2022-01-13] MEDS: CYANOCOBALAMIN 500 MCG TAB PO SCH (11:03)
[2022-01-13] MEDS: FLUoxetine HCL 20 MG CAP PO SCH (11:03)
[2022-01-13] MEDS: SPIRONOLACTONE 25 MG TAB PO SCH (11:03)
[2022-01-13] MEDS: DICYCLOMINE 10 MG CAP PO SCH ×2 (11:04→18:33)
[2022-01-13] MEDS: FUROSEMIDE 20 MG TAB PO SCH (11:04)
[2022-01-13] MEDS: ASCORBIC ACID 500 MG TAB PO SCH (11:04)
[2022-01-13] MEDS: POTASSIUM CHLORIDE ER 20 MEQ TAB.ER PO SCH ×2 (11:04→11:05)
[2022-01-13] MEDS: ACAMPROSATE CALCIUM 333 MG TABLET.DR PO SCH ×3 (11:05→19:53)
--- NOTE | 2022-01-13 12:50 | P.PN ---
Subjective Progress Note Date: 01/13/22 Patient is alert and oriented x 3, but still having episodes of hallucination. Had 6-8 loose BMs overnight. Improving mentation overall. Gen: in no apparent distress, resting comfortably in bed Eyes: PERRL, no scleral injection or icterus HENT: normocephalic, atraumatic, good hearing acuity, moist mucous membranes Neck: no tracheal deviation, full range of motion Resp: good air exchange, breathing comfortably with no accessory muscle use, no tactile fremitus CVS: good distal perfusion x 4, no pitting edema GI: soft, ND, no hepatosplenomegaly, tenderness to palpation diffusely, but worse in the right upper quadrant, spider angiomata present : no suprapubic tenderness, no CVAT, fenton catheter not present MSK: no clubbing, no cyanosis, no noted contractures of extremities Skin: no noted rashes, petechiae; temperature of skin is appropriate Neuro: moving all extremities without signs of weakness, CN II-XII intact Psych: cooperative, euthymic mood, insight and judgment intact Assessment/plan: Altered mental status Hepatocellular liver failure -Admit to inpatient, telemetry -GI consult -IV fluids -Hold off on antibiotics for now -Lactulose -Resume patient's rifaximin Alcohol use disorder Asthma Depression -Home medications reviewed and reconciled Patient is full code DVT prophylaxis with heparin 3 times a day Objective - Vital Signs Vital signs: Vital Signs Temp 97.2 F L 01/13/22 08:00 Pulse 83 01/13/22 08:00 Resp 18 01/13/22 08:00 BP 108/67 01/13/22 08:00 Pulse Ox 95 01/13/22 08:00 FiO2 Intake & Output 01/12/22 01/13/22 01/13/22 18:59 06:59 18:59 Intake Total 20 1150 Balance 20 1150 Weight 57.153 kg 57.153 kg Intake: IV 20 910 Invasive Line 1 20 10 Sodium Chloride 0.9% 1, 900 000 ml @ 75 mls/hr IV . [id number] ONE Rx#:[id number] Oral 240 Other: Voiding Method Toilet # Voids 1 - Labs CBC & Chem 7: 01/13/22 06:48 01/13/22 06:48 Labs: Abnormal Lab Results - Last 24 Hours (Table) 01/12/22 01/12/22 01/12/22 Range/Units 12:59 12:59 12:59 WBC (3.8-10.6) k/uL MCV (80.0-100.0) fL Plt Count 53 L (150-450) k/uL PT 15.7 H (9.0-12.0) sec INR 1.5 H (<1.2) Sodium (137-145) mmol/L Potassium (3.5-5.1) mmol/L Chloride (98-107) mmol/L BUN (7-17) mg/dL Glucose (74-99) mg/dL Total Bilirubin (0.2-1.3) mg/dL Conjugated Bilirubin (0.0-0.3) mg/dL Unconjugated Bilirubin (0.0-1.1) mg/dL Delta Bilirubin (0.0-0.2) mg/dL AST (14-36) U/L ALT (4-34) U/L Alkaline Phosphatase (38-126) U/L Total Protein (6.3-8.2) g/dL Albumin (3.5-5.0) g/dL U Marijuana (THC) Screen Detected H (NotDetected) 01/12/22 01/13/22 01/13/22 Range/Units 12:59 06:48 06:48 WBC 3.6 L (3.8-10.6) k/uL MCV 101.7 H (80.0-100.0) fL Plt Count 42 L (150-450) k/uL PT 14.5 H (9.0-12.0) sec INR 1.4 H (<1.2) Sodium 132 L (137-145) mmol/L Potassium (3.5-5.1) mmol/L Chloride 90 L (98-107) mmol/L BUN 27 H (7-17) mg/dL Glucose 104 H (74-99) mg/dL Total Bilirubin 8.2 H (0.2-1.3) mg/dL Conjugated Bilirubin 3.0 H (0.0-0.3) mg/dL Unconjugated Bilirubin 3.2 H (0.0-1.1) mg/dL Delta Bilirubin 2.0 H (0.0-0.2) mg/dL AST 1240 H (14-36) U/L ALT 446 H (4-34) U/L Alkaline Phosphatase 231 H (38-126) U/L Total Protein 9.1 H (6.3-8.2) g/dL Albumin 5.3 H (3.5-5.0) g/dL U Marijuana (THC) Screen (NotDetected) 01/13/22 Range/Units 06:48 WBC (3.8-10.6) k/uL MCV (80.0-100.0) fL Plt Count (150-450) k/uL PT (9.0-12.0) sec INR (<1.2) Sodium 136 L (137-145) mmol/L Potassium 3.3 L (3.5-5.1) mmol/L Chloride 94 L (98-107) mmol/L BUN (7-17) mg/dL Glucose (74-99) mg/dL Total Bilirubin 9.6 H (0.2-1.3) mg/dL Conjugated Bilirubin (0.0-0.3) mg/dL Unconjugated Bilirubin (0.0-1.1) mg/dL Delta Bilirubin (0.0-0.2) mg/dL AST 768 H (14-36) U/L ALT 377 H (4-34) U/L Alkaline Phosphatase 213 H (38-126) U/L Total Protein 8.4 H (6.3-8.2) g/dL Albumin (3.5-5.0) g/dL U Marijuana (THC) Screen (NotDetected)
[2022-01-13 13:47] VITALS: BMI 20.9
[2022-01-13 16:44] LABS: Hepatitis B Surface Antibody Reactive (Nonreactive)
[2022-01-13 18:06] LABS: Hepatitis A Antibody IgM Nonreactive (Nonreactive); Hepatitis B Core IgM Nonreactive (Nonreactive); Hepatitis B Surface Antigen Nonreactive (Nonreactive); Hepatitis C IgG Antibody Nonreactive (Nonreactive)
[2022-01-13] MEDS ORDERED: HALOPERIDOL LACTATE 5 MG/ML 1 ML VIAL IM STA (22:16)
[2022-01-14] MEDS: HEPARIN SODIUM,PORCINE/PF 5,000 UNIT/0.5 ML SYRINGE SQ SCH ×4 (00:08→23:27)
[2022-01-14] MEDS: PANTOPRAZOLE 40 MG TABLET PO SCH ×2 (06:29→16:05)
[2022-01-14] MEDS: SODIUM CHLORIDE 0.9% 1,000 ML IV SCH ×2 (07:32→21:00)
[2022-01-14] MEDS: RIFAXIMIN 550 MG TABLET PO SCH ×2 (09:11→20:03)
[2022-01-14] MEDS: CYANOCOBALAMIN 500 MCG TAB PO SCH (09:11)
[2022-01-14] MEDS: MULTIVITAMINS, THERA 1 EACH TAB PO SCH (09:12)
[2022-01-14] MEDS: FUROSEMIDE 20 MG TAB PO SCH (09:12)
[2022-01-14] MEDS: FLUoxetine HCL 20 MG CAP PO SCH (09:12)
[2022-01-14] MEDS: ACAMPROSATE CALCIUM 333 MG TABLET.DR PO SCH ×3 (09:12→20:02)
[2022-01-14] MEDS: SPIRONOLACTONE 25 MG TAB PO SCH (09:12)
[2022-01-14] MEDS: LACTULOSE 20 GM/30 ML CUP PO SCH ×2 (09:12→20:01)
[2022-01-14] MEDS: DICYCLOMINE 10 MG CAP PO SCH ×2 (09:12→20:02)
[2022-01-14] MEDS: ASCORBIC ACID 500 MG TAB PO SCH (09:13)
[2022-01-14] MEDS: ALBUTEROL HFA INHALER INHALATION PRN ×2 (09:33→20:14)
--- NOTE | 2022-01-14 10:52 | P.DS ---
Providers Date of admission: 01/12/22 16:25 Expected date of discharge: 01/14/22 Attending physician: Vivian Can MD Consults: 01/12/22 16:22 Consult Physician Routine Consulting Provider: Sally Castro Consult Reason/Comments: Cirrhosis, AMS Do you want consulting provider notified?: Yes Primary care physician: Radha [facility] Hospital Course: Discharge Diagnosis: Acute encephalopathy suspected due to hepatic encephalopathy since symptoms improved with lactulose. Hepatocellular liver failure Alcohol use disorder Asthma Depression Hospital Course: 51-year-old woman with medical history of alcohol use disorder, alcoholic cirrhosis, depression, asthma presented for evaluation of altered mental status. According to the patient, she has been having issues with confusion over the last several days to the point where family has started to notice that she's been having delusions and hallucinations. Yesterday for example she was having hallucinations that someone broke into her house and was planning to robber, and felt terrified from this. This morning, she presented to work but was not scheduled, and was found by her colleagues who noted that she was quite confused. 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 As a consequence, patient was brought to the emergency room for further evaluation. She denies fevers, but reports chills. She reports nausea without vomiting. She denies chest pain, palpitations, syncope, presyncope, cough, dyspnea. She reports abdominal pain, intermittent constipation, denies diarrhea. She denies dysuria, dyschezia, hematochezia, melena. She denies numbness/weakness of extremities. In the emergency room, patient was afebrile, 133/83, heart rate 94, 100% on room air. CBC shows low platelets of 53, otherwise unremarkable. Chemistry show low sodium at 132, low chloride at 90, BUN of 27, otherwise unremarkable. LFTs show total bilirubin of 8.2, conjugate bilirubin of 3.0, unconjugated bilirubin of 3.2, delta bilirubin of 2.0, AST of 1240, ALT of 446, alkaline phosphatase of 231, total protein of 9.1, albumin 5.3. TSH was 0.925. Ammonia was 12. Initial troponins 0.014. Coags show an elevated PT of 15.7, elevated INR 1.5. UA is unremarkable. Urine tox screen is only positive for marijuana. Alcohol level was less than 10, Tylenol level was less than 10, salicylate level was less than 1. Brain CT was negative for acute intracranial process. Chest x-ray was negative for acute cardiopulmonary disease or process. Gallbladder ultrasound demonstrated heterogenous hyperechoic appearance of the liver consistent with hepatocellular disease, no evidence of cholecystitis. Patient was admitted for hepatic encephalopathy. Patient was started on lactulose. She had multiple all movements. At the time of discharge patient denied any hallucinations. Patient also the time of discharge was not confused. She was at her baseline. Patient was then deemed stable for discharge. She is instructed to follow-up with her support team assoc at [facility]. Patient also seen by our cook helper dessert who cleared her for discharge. Patient was also extensively counseled on alcohol cessation. Patient seen and examined at bedside.[] Vital signs reviewed and stable. General: [non toxic], [no distress], [appears at stated age] Derm: [warm], [dry] Head: [atraumatic], [normocephalic], [symmetric] Eyes: [EOMI], [no lid lag], Mouth: [no lip lesion], [mucus membranes moist] Cardiovascular: [S1S2 reg], [no murmur], [positive posterior tibial pulse bilateral], Lungs: [CTA bilateral], [no rhonchi, no rales] , [no accessory muscle use] Abdominal: [soft], [ nontender to palpation], [no guarding], [no appreciable organomegaly] Ext: [no gross muscle atrophy], [no edema], [no contractures] Neuro: [ CN II-XI grossly intact], [no focal neuro deficits] Psych: [Alert], [oriented], [appropriate affect] A total of [33] minutes of time were spent preparing this complex discharge summary . Patient Condition at Discharge: Poor Plan - Discharge Summary Discharge Rx Participant: No New Discharge Prescriptions: New Lactulose [Cephulac] 10 gm PO BID #500 ml Continue Cyanocobalamin [Vitamin B-12] 500 mcg PO DAILY Ascorbic Acid [Vitamin C] 500 mg PO DAILY Lansoprazole [Prevacid 24Hr] 30 mg PO BID Rifaximin [Xifaxan] 550 mg PO BID Ondansetron Odt [Zofran ODT] 4 mg PO Q8H PRN PRN Reason: Nausea Spironolactone [Aldactone] 25 mg PO DAILY Furosemide [Lasix] 20 mg PO DAILY Dicyclomine HCl 10 mg PO BID Acamprosate Calcium [Campral] 666 mg PO TID Multivitamins, Thera [Multivitamin (formulary)] 1 tab PO DAILY Budesonide/Formoterol Fumarate [Symbicort 160-4.5 Mcg Inhaler] 2 puff INHALATION RT-BID PRN PRN Reason: Shortness Of Breath FLUoxetine HCL [PROzac] 20 mg PO DAILY Albuterol Inhaler [Ventolin Hfa Inhaler] 2 puff INHALATION RT-Q4H PRN PRN Reason: Shortness Of Breath Discharge Medication List Acamprosate Calcium [Campral] 666 mg PO TID 01/12/22 [History] Albuterol Inhaler [Ventolin Hfa Inhaler] 2 puff INHALATION RT-Q4H PRN 01/12/22 [History] Ascorbic Acid [Vitamin C] 500 mg PO DAILY 01/12/22 [History] Budesonide/Formoterol Fumarate [Symbicort 160-4.5 Mcg Inhaler] 2 puff INHALATION RT-BID PRN 01/12/22 [History] Cyanocobalamin [Vitamin B-12] 500 mcg PO DAILY 01/12/22 [History] Dicyclomine HCl 10 mg PO BID 01/12/22 [History] FLUoxetine HCL [PROzac] 20 mg PO DAILY 01/12/22 [History] Furosemide [Lasix] 20 mg PO DAILY 01/12/22 [History] Lansoprazole [Prevacid 24Hr] 30 mg PO BID 01/12/22 [History] Multivitamins, Thera [Multivitamin (formulary)] 1 tab PO DAILY 01/12/22 [History] Ondansetron Odt [Zofran ODT] 4 mg PO Q8H PRN 01/12/22 [History] Rifaximin [Xifaxan] 550 mg PO BID 01/12/22 [History] Spironolactone [Aldactone] 25 mg PO DAILY 01/12/22 [History] Lactulose [Cephulac] 10 gm PO BID #500 ml 01/14/22 [Rx] Follow up Appointment(s)/Referral(s): Radha Liang MD [Primary Care Provider] - 1-2 days Discharge/Stand Alone Forms: AA Meetings [place], Who Do I Call?, Community Resources, Outpatient Counseling Discharge Disposition: HOME SELF-CARE
[2022-01-15 04:03] VITALS: TEMP 98.2
[2022-01-15] MEDS: PANTOPRAZOLE 40 MG TABLET PO SCH (06:21)
[2022-01-15] MEDS: ALBUTEROL HFA INHALER INHALATION PRN (08:19)
[2022-01-15] MEDS: HEPARIN SODIUM,PORCINE/PF 5,000 UNIT/0.5 ML SYRINGE SQ SCH (08:52)
[2022-01-15 08:57] VITALS: BP 92/54; PULSE 88; RESP 18
[2022-01-15] MEDS: RIFAXIMIN 550 MG TABLET PO SCH (08:57)
[2022-01-15] MEDS: LACTULOSE 20 GM/30 ML CUP PO SCH (08:57)
[2022-01-15] MEDS: ACAMPROSATE CALCIUM 333 MG TABLET.DR PO SCH (08:57)
[2022-01-15] MEDS: FLUoxetine HCL 20 MG CAP PO SCH (08:57)
[2022-01-15] MEDS: FUROSEMIDE 20 MG TAB PO SCH (08:58)
[2022-01-15] MEDS: CYANOCOBALAMIN 500 MCG TAB PO SCH (08:58)
[2022-01-15] MEDS: DICYCLOMINE 10 MG CAP PO SCH (08:58)
[2022-01-15] MEDS: MULTIVITAMINS, THERA 1 EACH TAB PO SCH (08:58)
[2022-01-15] MEDS: ASCORBIC ACID 500 MG TAB PO SCH (08:58)
[2022-01-15] MEDS: SPIRONOLACTONE 25 MG TAB PO SCH (08:58)
[2022-01-15] MEDS: SODIUM CHLORIDE 0.9% 1,000 ML IV SCH (08:59)
--- NOTE | 2022-01-15 09:46 | P.PN ---
Progress Note - Text Progress Note Date: 01/15/22 Yesterday patient was discharged. However family was not comfortable taking her home and wanted her to be in the hospital for one more day. This morning patient states that she's had no more hallucinations she feels well. She is now looking forward to going home. I discussed with the nurse and told him that patient is stable for discharge.
== END 2022-01-15 10:35 | disposition home or self-care (01) | DRG 434 ==
LOC: EC 12:37 → 3SCARD 16:25
PROVIDERS: ADMIT Internal Medicine; ATTEND Internal Medicine
DX: K70.40 Alcoholic hepatic failure without coma (principal); F10.20 Alcohol dependence, uncomplicated; F17.210 Nicotine dependence, cigarettes, uncomplicated; K70.30 Alcoholic cirrhosis of liver without ascites; K76.82 Hepatic encephalopathy; J45.909 Unspecified asthma, uncomplicated; K82.8 Other specified diseases of gallbladder; R79.1 Abnormal coagulation profile; F32.A Depression, unspecified; D69.6 Thrombocytopenia, unspecified; F22 Delusional disorders; K59.00 Constipation, unspecified; Z79.51 Long term (current) use of inhaled steroids; Z79.899 Other long term (current) drug therapy; Z88.8 Allergy status to other drugs, medicaments and biological substances
CPT/HCPCS: 36415; 70450; 71046; 76705; 80053; 80074; 80143; 80179; 80306; 80320; 81003; 82140; 82248; 83690; 83735; 84443; 84484; 85025; 85610; 85730; 86704; 86706; 87350; 93005; 94640; 96360; 99285